=== PATIENT | male | born 1965 | race Caucasian/White ===

== ENCOUNTER 2016-08-30 15:20 | Emergency (ER) | payer BC, OTHER ==
[~2016-08-30] VITALS: Ht 170.2 cm; Wt 89.0 kg
[2016-08-30 15:30] VITALS: Ht 170.2 cm; Wt 89.0 kg
[2016-08-30 16:39] VITALS: BP 116/66; PULSE 78; RESP 18
--- NOTE | 2016-08-30 16:39 | ERD ---
ER Documentation Chief Complaint Date/Time DATE: 08/30/16 TIME: 16:36 Chief Complaint REFERRED FROM PCP FOR C/O LOW BLOOD PRESSURE HPI Patient is a 51-year-old male who was seen at a consultation for a colonoscopy at an outside facility and he had his blood pressure checked and according to the doctor the blood pressure was 80/50. Patient was advised that point to come to the emergency room although he states he felt fine and continues to feel fine. He has no complaints at this time. No chest pain, no dizziness, no headache, no lightheadedness. He is diabetic but he denies any problems with his blood pressure and does not take any blood pressure medications. ROS All systems reviewed and are negative except as per history of present illness. Allergies Allergies: Coded Allergies: No Known Allergies (Verified Allergy, Unknown, 11/14/06) FmHx Family History: No diabetes Physical Exam Vitals Vital Signs Date Time Temp Pulse Resp B/P Pulse Ox O2 Delivery O2 Flow Rate FiO2 08/30/16 15:30 98.0 87 17 136/71 100 Physical Exam General: well developed, well nourished, alert, nontoxic, no distress Head: normocephalic, atraumatic Eyes: PERRL, normal conjunctiva Neck: Supple, nontender, no lymphadenopathy, no midline tenderness Respiratory: Clear to auscaultation bilaterally, speaks in full sentences, no use of accesory muscles or labored breathing, no rales, ronchi, or wheezing Cardiovascular: RRR, No murmurs GI: soft, non tender, non distended, negative murphys sign, negative mcburneys point tenderness, no cva tenderness bilaterally, no rebound or guarding Procedures/MDM 51-year-old is here because he had low blood pressure at his primary care doctor 's office. According to the primary care was 80/50. Patient has no blood pressure problems that he knows about and he feels fine and states he felt fine entire time. His blood pressure in triage is 136/71. I rechecked it at the time of evaluation and it was 116/66. At this time I do believe he is suitable for outpatient management. Reviewed the case with Dr. Britt and he agrees with the plan. Recommended this patient follow up with her primary care doctor within 48 hours or return to the emergency room for any worsening of symptoms. However this time I do believe there is suitable for outpatient management. I answered all their questions and they agreed with the plan and were discharged home. Departure Diagnosis: Primary Impression: Blood pressure check Condition: Stable LILIANA YOUNG PA-C August 30, 2016 16:39
== END 2016-08-30 17:22 | disposition left against medical advice (07) ==
LOC: FTE 15:20
DX: R03.1 Nonspecific low blood-pressure reading (principal)
CPT/HCPCS: 99282

== ENCOUNTER 2016-11-03 14:15 | Day surgery (SDC) | payer OTHER ==
[~2016-11-03] VITALS: Ht 170.2 cm; Wt 86.1 kg
[2016-11-03 15:08] VITALS: Ht 170.2 cm; Wt 86.1 kg
[2016-11-03] MEDS ORDERED: PANT40TA4 PO (15:30)
[2016-11-03] MEDS ORDERED: glipizide PO (15:30)
[2016-11-03] MEDS ORDERED: PROP10TA6 PO (15:30)
[2016-11-03] MEDS ORDERED: DULA1.5P SQ (15:30)
[2016-11-03] MEDS ORDERED: SPIRONOLACTONE PO (15:30)
[2016-11-03] MEDS ORDERED: lactulose PO (15:30)
[2016-11-03] MEDS ORDERED: MTF1000T PO (15:30)
[2016-11-03 15:41] VITALS: BP 108/59; PULSE 74; RESP 20
[2016-11-03] MEDS ORDERED: PROPOFOL 40 ML ONE (16:39)
[2016-11-03] MEDS ORDERED: LIDOCAINE 2% (SDV) 5 ML INJ ONE (16:39)
--- NOTE | 2016-11-03 17:01 | OPPN ---
Date/Time of Note Date/Time of Note DATE: 11/03/16 TIME: 16:59 Operative Report Preoperative Diagnosis Screening colonoscopy Postoperative Diagnosis Internal hemorrhoids No colon neoplasm identified Operation/Procedure Performed Colonoscopy Anesthesia: MAC Estimated blood loss: none Complications: None SUDHA BREEN MD Nov 03, 2016 17:01
[2016-11-03 17:24] VITALS: BP 114/70; PULSE 72; RESP 14
--- NOTE | 2016-11-03 18:50 | GILP ---
DATE OF PROCEDURE: 11/03/2016 PREOPERATIVE DIAGNOSIS: Screening colonoscopy. POSTOPERATIVE DIAGNOSES: 1. Colonoscopy all the way to the cecum. 2. Internal hemorrhoids. 3. No colon neoplasm was identified. PROCEDURE PERFORMED: Screening colonoscopy. SURGEON: Belén Irving MD. INDICATION FOR PROCEDURE: Mr. Jamir Barajas is a 51-year-old male patient who was scheduled for a screening colonoscopy. The procedure and possible complications were well explained to the patient and he understood and consented to the procedure. DESCRIPTION OF PROCEDURE: Under the influence of anesthesia the colonoscope was carefully introduced in the rectum and under direct vision it was advanced all the way to the cecum. Findings, the patient had internal hemorrhoids. No colon neoplasm was identified. He tolerated the procedure very well. There was no complications from the procedure. At the end of procedure he was awake with stable vital signs and he was discharged home in the care of his family. IMPRESSION: 1. Colonoscopy all the way to the cecum. 2. Internal hemorrhoids. 3. No colon neoplasm was identified. PLAN: Next screening colonoscopy in 10 years. Dictated By: MD ARIK Jones/garry/cherise /Document#: [id number] CC: Belén Irving MD;*EndCC*
== END 2016-11-03 17:53 | disposition home or self-care (01) ==
LOC: GIL 14:15
PROVIDERS: ATTEND Internal Medicine Gastroenterology
DX: Z12.11 Encounter for screening for malignant neoplasm of colon (principal); K64.8 Other hemorrhoids; E11.9 Type 2 diabetes mellitus without complications; Z79.4 Long term (current) use of insulin; E66.9 Obesity, unspecified; Z68.29 Body mass index [BMI] 29.0-29.9, adult
CPT/HCPCS: 45378; 82962; Z7610